=== PATIENT | female | born 1960 | race Caucasian/White ===

== ENCOUNTER 2022-08-23 08:39 | Inpatient (IN) | payer OTHER ==
[~2022-08-23] VITALS: Ht 157.5 cm; Wt 67.1 kg
[2022-09-02] MEDS ORDERED: INTEGRA PLUS C1 EACH (14:15)
[2022-09-02] MEDS ORDERED: PANTOPRAZOLE SO40 MG (14:15)
== END 2022-09-03 12:51 | disposition home or self-care (01) | DRG 328 ==
LOC: ADM 09:30 → EDSTATUS 08-30 09:30 → SURH 08-30 09:30 → CIR.AMB 08-30 09:30 → SURH 08-30 13:20 → O/R 09-02 06:08 → ICU 09-02 06:08
PROVIDERS: ADMIT Surgery; ATTEND Surgery
PROC: 8E0W4CZ Robotic Assisted Procedure of Trunk Region, Percutaneous Endoscopic Approach (ICD-10-PCS; 2022-09-02)
PROC: 0BQT4ZZ Repair Diaphragm, Percutaneous Endoscopic Approach (ICD-10-PCS; principal; 2022-09-02 08:30)
DX: K44.9 Diaphragmatic hernia without obstruction or gangrene (principal); Z20.822 Contact with and (suspected) exposure to COVID-19
CPT/HCPCS: 43281; S2900